=== PATIENT | male | born 1970 | race Caucasian/White ===

== ENCOUNTER 2022-06-03 17:37 | Emergency (ER) | payer BC ==
[2022-06-03] MEDS ORDERED: Sodium Chloride 0.9% 1,000 ML IV ONE (18:23)
[2022-06-03 18:49] LABS: CARBON DIOXIDE,CO2 27.7 mmol/L (21.0-32.0); POTASSIUM,K 3.6 mmol/L (3.5-5.1)
[2022-06-03] MEDS ORDERED: Pantoprazole 80 MG in Sodium Chloride 0.9% 10 ML IVPUSH ONE (19:08)
[2022-06-03] MEDS ORDERED: Alum Hydro/Mag Hydro/Simeth XS 15 ML, Metoclopramide 5 MG, Lidocaine 2% 5 ML PO ONE ×3 (19:09)
[2022-06-03] MEDS ORDERED: Iopamidol 755 MG/ML 500 ML Multipack Bottle IVPUSH ONE (20:07)
== END 2022-06-03 21:36 | disposition home or self-care (01) ==
LOC: MW.ED 17:37
DX: K29.70 Gastritis, unspecified, without bleeding (principal); E11.9 Type 2 diabetes mellitus without complications; T38.3X5A Adverse effect of insulin and oral hypoglycemic [antidiabetic] drugs, initial encounter; Z79.899 Other long term (current) drug therapy; Z90.49 Acquired absence of other specified parts of digestive tract
CPT/HCPCS: 36415; 71045; 74177; 80053; 82550; 83605; 83690; 84484; 85025; 93005; 96361; 96374; 99284; A9270; C9113; J3490; J7030; Q9967

== ENCOUNTER 2022-06-25 22:37 | Emergency (ER) | payer BC ==
[2022-06-25] MEDS ORDERED: Acetaminophen/oxyCODONE 325-5 MG Tab PO ONE (23:06)
== END 2022-06-25 23:19 | disposition home or self-care (01) ==
LOC: MW.ED 22:37
DX: G89.29 Other chronic pain (principal); M25.511 Pain in right shoulder; E11.9 Type 2 diabetes mellitus without complications; Z79.84 Long term (current) use of oral hypoglycemic drugs
CPT/HCPCS: 99283; A9270

== ENCOUNTER 2023-10-11 17:49 | Emergency (ER) | payer BC ==
[2023-10-11 18:57] LABS: BILIRUBIN,URINE NEGATIVE (NEGATIVE); COLOR,URINE YELLOW; GLUCOSE,URINE NEGATIVE (NEGATIVE); KETONES,URINE NEGATIVE (NEGATIVE); LEUKOCYTE ESTERASE,URINE SMALL (NEGATIVE); NITRITE,URINE NEGATIVE (NEGATIVE); OCCULT BLOOD,URINE SMALL (NEGATIVE); PH,URINE 5.5 (5.0-8.0); PROTEIN,URINE NEGATIVE (NEGATIVE); UROBILINOGEN,URINE 0.2 EU/dL (<2.0)
[2023-10-11] MEDS ORDERED: Sodium Chloride 0.9% 10 ML Syringe FLUSH PRN (19:01)
[2023-10-11] MEDS ORDERED: Sodium Chloride 0.9% 2.5 ML Syringe FLUSH PRN (19:01)
[2023-10-11] MEDS ORDERED: Sodium Chloride 0.9% 1,000 ML IV ONE (19:01)
[2023-10-11] MEDS ORDERED: Ondansetron 4 MG/2 ML SDV IVPUSH ONE (19:02)
[2023-10-11] MEDS ORDERED: cefTRIAXone 2 GM in Sodium Chloride 0.9% 50 ML IV ONE (19:02)
[2023-10-11 19:05] LABS: APPEARANCE,URINE CLOUDY
[2023-10-11 19:06] LABS: BACTERIA,URINE 3+ (NEGATIVE); EPITHELIAL CELLS,URINE RARE (NONE-FEW); RBC,URINE 0-2 (0-2/HPF); WBC,URINE TO NUMEROUS TO COUNT (0-5/HPF)
[2023-10-11] MEDS ORDERED: Acetaminophen 500 MG Tab PO ONE (19:10)
[2023-10-11 19:13] LABS: BASOPHILS ABSOLUTE AUTO 0.03 K/uL (0.00-0.20); BASOPHILS PERCENT AUTO 0.2 % (0.0-1.0); EOSINOPHILS ABSOLUTE AUTO 0.03 K/uL (0.00-0.45); EOSINOPHILS PERCENT AUTO 0.2 % (0.0-6.0); HEMATOCRIT 39.2 % (42.0-52.0); HEMOGLOBIN 13.9 g/dL (14.0-18.0); IMMATURE GRAN ABSOLUTE AUTO 0.06 K/uL (0.00-0.05); IMMATURE GRAN PERCENT AUTO 0.4 % (0.0-0.4); LYMPHOCYTES ABSOLUTE AUTO 0.87 K/uL (1.00-4.80); LYMPHOCYTES PERCENT AUTO 5.3 % (24.0-44.0); MEAN CORPUSCULAR HEMOGLOBIN 31.2 pg (28.0-32.0); MEAN CORPUSCULAR HGB CONC 35.5 g/dL (32.0-36.0); MEAN CORPUSCULAR VOLUME 87.9 fL (83.0-99.0); MONOCYTES ABSOLUTE AUTO 1.11 K/uL (0.00-0.80); MONOCYTES PERCENT AUTO 6.8 % (0.0-8.0); NEUTROPHILS ABSOLUTE AUTO 14.17 K/uL (1.80-7.70); NEUTROPHILS PERCENT AUTO 87.1 % (41.0-71.0); PLATELET COUNT,PLT 225 K/uL (150-400); RED BLOOD CELL COUNT 4.46 M/uL (4.52-5.90); WHITE BLOOD CELL COUNT,WBC 16.27 K/uL (3.9-11.3)
[2023-10-11 19:41] LABS: A/G RATIO 1.5 (0.9-1.6); ALBUMIN 4.3 g/dL (3.4-5.0); CALCIUM 8.8 mg/dL (8.5-10.1); CARBON DIOXIDE,CO2 29.6 mmol/L (21.0-32.0); CREATININE 1.2 mg/dL (0.8-1.3); EST CRCL DRUG DOSING (CG) 77.57 mL/min; PROTEIN TOTAL,TP 7.2 g/dL (6.4-8.2)
[2023-10-11 19:46] LABS: LACTIC ACID 0.9 mmol/L (0.4-2.0)
[2023-10-11] MEDS ORDERED: Iopamidol 755 MG/ML 500 ML Multipack Bottle IVPUSH STA (19:58)
== END 2023-10-11 21:15 | disposition home or self-care (01) ==
LOC: MW.ED 17:49
DX: N12 Tubulo-interstitial nephritis, not specified as acute or chronic (principal); E11.9 Type 2 diabetes mellitus without complications; Z79.84 Long term (current) use of oral hypoglycemic drugs; Z79.899 Other long term (current) drug therapy
CPT/HCPCS: 36415; 74177; 80053; 81001; 83605; 83690; 85025; 87040; 87086; 96365; 96375; 99284; A9270; J0696; J2405; J3490; J7030; Q9967; 87088; 87186

== ENCOUNTER 2023-10-14 04:52 | Inpatient (IN) | payer BC ==
[2023-10-14] MEDS ORDERED: Sodium Chloride 0.9% 2.5 ML Syringe FLUSH PRN (04:58)
[2023-10-14] MEDS ORDERED: Sodium Chloride 0.9% 10 ML Syringe FLUSH PRN (04:58)
[2023-10-14] MEDS ORDERED: Sodium Chloride 0.9% 1,000 ML IV ONE (04:58)
[2023-10-14] MEDS ORDERED: Cefepime 2 GM in Sodium Chloride 0.9% 50 ML IV ONE (05:01)
[2023-10-14 05:18] LABS: BASOPHILS ABSOLUTE AUTO 0.02 K/uL (0.00-0.20); BASOPHILS PERCENT AUTO 0.2 % (0.0-1.0); EOSINOPHILS ABSOLUTE AUTO 0.17 K/uL (0.00-0.45); HEMATOCRIT 36.1 % (42.0-52.0); HEMOGLOBIN 12.8 g/dL (14.0-18.0); IMMATURE GRAN ABSOLUTE AUTO 0.02 K/uL (0.00-0.05); IMMATURE GRAN PERCENT AUTO 0.2 % (0.0-0.4); LYMPHOCYTES ABSOLUTE AUTO 0.72 K/uL (1.00-4.80); LYMPHOCYTES PERCENT AUTO 8.4 % (24.0-44.0); MEAN CORPUSCULAR HEMOGLOBIN 31.1 pg (28.0-32.0); MEAN CORPUSCULAR HGB CONC 35.5 g/dL (32.0-36.0); MEAN CORPUSCULAR VOLUME 87.8 fL (83.0-99.0); MEAN PLATELET VOLUME 9.1 fL (9.4-12.4); MONOCYTES ABSOLUTE AUTO 0.86 K/uL (0.00-0.80); NEUTROPHILS ABSOLUTE AUTO 6.78 K/uL (1.80-7.70); NEUTROPHILS PERCENT AUTO 79.2 % (41.0-71.0); PLATELET COUNT,PLT 188 K/uL (150-400); RED BLOOD CELL COUNT 4.11 M/uL (4.52-5.90); WHITE BLOOD CELL COUNT,WBC 8.57 K/uL (3.9-11.3)
[2023-10-14 05:20] LABS: APPEARANCE,URINE CLEAR; BILIRUBIN,URINE NEGATIVE (NEGATIVE); COLOR,URINE YELLOW; GLUCOSE,URINE NEGATIVE (NEGATIVE); KETONES,URINE NEGATIVE (NEGATIVE); LEUKOCYTE ESTERASE,URINE TRACE (NEGATIVE); NITRITE,URINE NEGATIVE (NEGATIVE); OCCULT BLOOD,URINE TRACE-INTACT (NEGATIVE); PROTEIN,URINE NEGATIVE (NEGATIVE); UROBILINOGEN,URINE 0.2 EU/dL (<2.0)
[2023-10-14 05:28] LABS: BACTERIA,URINE RARE (NEGATIVE); EPITHELIAL CELLS,URINE RARE (NONE-FEW); RBC,URINE 0-1 (0-2/HPF)
[2023-10-14 05:37] LABS: A/G RATIO 0.9 (0.9-1.6); BILIRUBIN TOTAL 0.3 mg/dL (0.2-1.0); CALCIUM 8.4 mg/dL (8.5-10.1); CARBON DIOXIDE,CO2 25.9 mmol/L (21.0-32.0); CREATININE 1.3 mg/dL (0.8-1.3); EST CRCL DRUG DOSING (CG) 71.6 mL/min; POTASSIUM,K 3.9 mmol/L (3.5-5.1); PROTEIN TOTAL,TP 6.3 g/dL (6.4-8.2)
[2023-10-14 05:58] LABS: CORONAVIRUS COVID-19 NAA NEGATIVE (NEGATIVE); INFLUENZA A NAA NEGATIVE (NEGATIVE); INFLUENZA B NAA NEGATIVE (NEGATIVE)
[2023-10-14 06:06] LABS: LACTIC ACID 1.2 mmol/L (0.4-2.0)
[2023-10-14] MEDS ORDERED: Polyethylene Glycol 3350 Powder 17 GM Packet PO PRN (09:20)
[2023-10-14] MEDS ORDERED: Ondansetron 4 MG/2 ML SDV IVPUSH PRN (09:20)
[2023-10-14] MEDS: Enoxaparin 40 MG/0.4 ML Syringe SUBCUT SCH (10:53)
[2023-10-14] MEDS: Sodium Chloride 0.9% 1,000 ML IV SCH ×2 (11:52→21:28)
[2023-10-14] MEDS: Acetaminophen 325 MG Tab PO PRN (13:08)
[2023-10-14] MEDS: Levofloxacin/Dextrose 5%-Water 750 MG in Premix Bag 1 BAG IV SCH (15:59)
[2023-10-14] MEDS ORDERED: Cefepime 2 GM in Sodium Chloride 0.9% 50 ML IV SCH (21:00)
[2023-10-15] MEDS: Acetaminophen 325 MG Tab PO PRN ×3 (00:02→16:54)
[2023-10-15 07:12] LABS: BASOPHILS ABSOLUTE AUTO 0.02 K/uL (0.00-0.20); BASOPHILS PERCENT AUTO 0.4 % (0.0-1.0); EOSINOPHILS ABSOLUTE AUTO 0.12 K/uL (0.00-0.45); EOSINOPHILS PERCENT AUTO 2.5 % (0.0-6.0); IMMATURE GRAN ABSOLUTE AUTO 0.02 K/uL (0.00-0.05); IMMATURE GRAN PERCENT AUTO 0.4 % (0.0-0.4); LYMPHOCYTES ABSOLUTE AUTO 0.95 K/uL (1.00-4.80); LYMPHOCYTES PERCENT AUTO 20.1 % (24.0-44.0); MEAN CORPUSCULAR HGB CONC 35.1 g/dL (32.0-36.0); MEAN CORPUSCULAR VOLUME 88.3 fL (83.0-99.0); MEAN PLATELET VOLUME 9.3 fL (9.4-12.4); MONOCYTES ABSOLUTE AUTO 0.81 K/uL (0.00-0.80); MONOCYTES PERCENT AUTO 17.2 % (0.0-8.0); NEUTROPHILS PERCENT AUTO 59.4 % (41.0-71.0); PLATELET COUNT,PLT 210 K/uL (150-400); RED BLOOD CELL COUNT 4.19 M/uL (4.52-5.90); WHITE BLOOD CELL COUNT,WBC 4.72 K/uL (3.9-11.3)
[2023-10-15 07:35] LABS: C-REACTIVE PROTEIN 3.89 mg/dL (<0.3); CALCIUM 8.7 mg/dL (8.5-10.1); CARBON DIOXIDE,CO2 28.5 mmol/L (21.0-32.0); CREATININE 1.2 mg/dL (0.8-1.3); EST CRCL DRUG DOSING (CG) 77.57 mL/min; POTASSIUM,K 4.7 mmol/L (3.5-5.1)
[2023-10-15] MEDS: Sodium Chloride 0.9% 1,000 ML IV SCH (08:20)
[2023-10-15] MEDS: Enoxaparin 40 MG/0.4 ML Syringe SUBCUT SCH (08:31)
[2023-10-15] MEDS: Doxycycline 100 MG in Sodium Chloride 0.9% 100 ML IV SCH (13:56)
[2023-10-15 15:50] LABS: C. TRACHOMATIS BY PCR NOT DETECTED; N. GONORRHOEAE BY PCR NOT DETECTED
[2023-10-15] MEDS: Levofloxacin/Dextrose 5%-Water 750 MG in Premix Bag 1 BAG IV SCH (16:53)
[2023-10-16] MEDS: Doxycycline 100 MG in Sodium Chloride 0.9% 100 ML IV SCH ×2 (00:26→12:53)
[2023-10-16] MEDS: Sodium Chloride 0.9% 1,000 ML IV SCH (00:28)
[2023-10-16 06:45] LABS: BASOPHILS ABSOLUTE AUTO 0.03 K/uL (0.00-0.20); BASOPHILS PERCENT AUTO 0.5 % (0.0-1.0); EOSINOPHILS ABSOLUTE AUTO 0.25 K/uL (0.00-0.45); HEMATOCRIT 39.9 % (42.0-52.0); IMMATURE GRAN ABSOLUTE AUTO 0.02 K/uL (0.00-0.05); IMMATURE GRAN PERCENT AUTO 0.3 % (0.0-0.4); LYMPHOCYTES ABSOLUTE AUTO 1.17 K/uL (1.00-4.80); LYMPHOCYTES PERCENT AUTO 18.5 % (24.0-44.0); MEAN CORPUSCULAR HEMOGLOBIN 30.6 pg (28.0-32.0); MEAN CORPUSCULAR HGB CONC 35.1 g/dL (32.0-36.0); MEAN CORPUSCULAR VOLUME 87.3 fL (83.0-99.0); MEAN PLATELET VOLUME 9.1 fL (9.4-12.4); MONOCYTES ABSOLUTE AUTO 1.01 K/uL (0.00-0.80); NEUTROPHILS ABSOLUTE AUTO 3.84 K/uL (1.80-7.70); NEUTROPHILS PERCENT AUTO 60.7 % (41.0-71.0); PLATELET COUNT,PLT 226 K/uL (150-400); RED BLOOD CELL COUNT 4.57 M/uL (4.52-5.90); WHITE BLOOD CELL COUNT,WBC 6.32 K/uL (3.9-11.3)
[2023-10-16 07:07] LABS: CALCIUM 8.8 mg/dL (8.5-10.1); CARBON DIOXIDE,CO2 27.3 mmol/L (21.0-32.0); CREATININE 1.2 mg/dL (0.8-1.3); EST CRCL DRUG DOSING (CG) 77.57 mL/min; POTASSIUM,K 4.5 mmol/L (3.5-5.1)
[2023-10-16] MEDS: Enoxaparin 40 MG/0.4 ML Syringe SUBCUT SCH (08:39)
[2023-10-19 08:02] LABS: HBSAG SCREEN Negative (Negative); HCV AB Non Reactive (Non Reactive); HEP A AB, IGM Negative (Negative); HEP B CORE AB, IGM Negative (Negative)
== END 2023-10-16 13:12 | disposition home or self-care (01) | DRG 463 ==
LOC: MW.ED 04:52 → MW.MS 06:20 → OBSVTOIN 10-15 10:12 → MW.MS 10-15 14:51
PROVIDERS: ADMIT Family Medicine; ATTEND Family Medicine
DX: N39.0 Urinary tract infection, site not specified (principal); B96.20 Unspecified Escherichia coli [E. coli] as the cause of diseases classified elsewhere; N40.0 Benign prostatic hyperplasia without lower urinary tract symptoms; F90.9 Attention-deficit hyperactivity disorder, unspecified type; E11.9 Type 2 diabetes mellitus without complications; Z98.890 Other specified postprocedural states; Z90.49 Acquired absence of other specified parts of digestive tract; Z11.52 Encounter for screening for COVID-19
CPT/HCPCS: 0240U; 36415; 51798; 74176; 74176-26; 80048; 80053; 80074; 81001; 82947; 83605; 83690; 85025; 86140; 87040; 87045; 87046; 87086; 87389; 87449; 87491; 87529; 87591; 87899; 96361; 96365; 96366; 96367; 96372; 96375; 99222; 99232; 99239; 99283; 99284-25; A9270-GY; G0378; J0692; J1650; J1956; J2405; J3490; J7030

== ENCOUNTER 2023-10-17 02:59 | Emergency (ER) | payer BC | END 2023-10-17 04:05 | disposition home or self-care (01) | LOC: MW.ED 02:59 | DX: L53.9 Erythematous condition, unspecified (principal); E11.9 Type 2 diabetes mellitus without complications; Z79.899 Other long term (current) drug therapy | CPT/HCPCS: 99283 ==

== ENCOUNTER 2024-11-23 10:56 | Emergency (ER) | payer SELFPAY ==
[2024-11-23] MEDS: Acetaminophen/HYDROcodone 325-5 MG Tab PO ONE (13:42)
[2024-11-23] MEDS: Lidocaine 1% 5 ML VIAL INJECT ONE (13:43)
[2024-11-23] MEDS: Bacitracin Oint 1 GM U/D Packet TOP ONE (13:43)
== END 2024-11-23 14:35 | disposition home or self-care (01) ==
LOC: MW.ED 10:56
DX: S62.634B Displaced fracture of distal phalanx of right ring finger, initial encounter for open fracture (principal); E11.9 Type 2 diabetes mellitus without complications; Z90.49 Acquired absence of other specified parts of digestive tract; Z79.899 Other long term (current) drug therapy; Z75.8 Other problems related to medical facilities and other health care; W23.1XXA Caught, crushed, jammed, or pinched between stationary objects, initial encounter
CPT/HCPCS: 11760; 12001; 73140-26-F8; 73140-F8; 99283-25; A9270-GY; J3490